=== PATIENT | female | born 1960 | race Caucasian/White ===

== ENCOUNTER 2016-08-11 01:25 | Emergency (ER) | payer BC, SELFPAY ==
[2016-08-11] MEDS ORDERED: Albuterol Sulfate 2.5 mg/0.5 ml Neb ONE ×3 (01:36→02:05)
[2016-08-11] MEDS ORDERED: Sodium Chloride 0.9% 1,000 ML ONE (01:36)
[2016-08-11] MEDS ORDERED: Ipratropium Bromide 2.5 ml Neb ONE (01:36)
[2016-08-11] MEDS ORDERED: methylPREDNISolone Sod Succ/PF 125 MG/2 ML VIAL ONE (01:37)
[2016-08-11] MEDS ORDERED: Water For Inject, Bacteriostat 30 ML ONE (01:38)
[2016-08-11] MEDS ORDERED: Ondansetron HCl/PF 4 MG/2 ML Vial ONE (01:41)
[2016-08-11 01:53] LABS: #Basophils 0.2 thou/uL (0.0-0.2); #Lymphocytes 3.5 thou/uL (1.20-3.40); #Neutrophils 10.7 thou/uL (1.40-6.50); %Basophils 1.2 % (0.0-1.0); %Eosinophils 5.9 % (0.0-10.0); %Lymphocytes 21.3 % (21.0-51.0); %Monocytes 6.3 % (0.0-10.0); %Neutrophils 65.2 % (42.0-75.0); Hemoglobin 14.7 g/dL (12.0-16.0); Mean Corpuscular HGB CONC 33.3 g/dL (32.0-36.0); Mean Corpuscular Hemoglobin 29.8 pg (27.0-31.0); Mean Corpuscular Volume 89.4 fl (81.0-99.0); Mean Platelet Volume 6.8 fL (7.4-10.4); Platelet Count 530 thou/uL (130-400); RBC Distribution Width 12.6 % (11.5-14.5); Red Blood Cell (RBC) Count 4.94 mill/uL (4.20-5.40); White Blood Cell (WBC) Count 16.4 thou/uL (4.8-10.8)
[2016-08-11] MEDS ORDERED: Albuterol Sulfate 2.5 mg/3 ml Neb ONE (02:02)
[2016-08-11 02:07] LABS: ALT (SGPT) 15 U/L (8-55); AST (SGOT) 14 U/L (5-34); Albumin 4.4 g/dL (3.5-5.0); Alkaline Phosphatase 60 U/L (40-150); Anion Gap 17 mmol/L (10-20); BUN (Urea Nitrogen) 13 mg/dL (9.8-20.1); Bilirubin, Total 0.3 mg/dL (0.2-1.2); CK (CPK) 100 U/L (29-168); Calc. Creatinine Clearance 0 mL/min (70-130); Calcium 9.5 mg/dL (7.8-10.44); Carbon Dioxide 25 mmol/L (22-29); Chloride 98 mmol/L (98-107); Estimated GFR-MDRD 81; Globulin 3.8 g/dL (2.4-3.5); Glucose 126 mg/dL (70-105); Potassium 4.5 mmol/L (3.5-5.1); Protein, Total 8.2 g/dL (6.0-8.3); Sodium 135 mmol/L (136-145)
[2016-08-11 02:09] LABS: CKMB 3.4 ng/mL (0-6.6); Troponin I Less than 0.010 ng/mL (< 0.028)
--- NOTE | 2016-08-11 08:04 | RAD ---
PORTABLE SITTING CHEST 1 VIEW: HISTORY: A 56-year-old female with dyspnea, difficulty breathing, and history of COPD. COMPARISON: 04/03/15. FINDINGS: Monitor leads overlie the chest. Heart size is normal. Stable increased linear and interstitial ma rkings bilaterally. No confluent pneumonia, overt edema, or pleural effusion. IMPRESSION: Mild stable chronic changes. No acute intrathoracic disease. POS: [facility]
== END 2016-08-11 04:08 | disposition short-term general hospital (02) ==
LOC: NAV ERS 01:25
DX: J44.1 Chronic obstructive pulmonary disease with (acute) exacerbation (principal); I10 Essential (primary) hypertension; E78.00 Pure hypercholesterolemia, unspecified; K50.90 Crohn's disease, unspecified, without complications; F41.9 Anxiety disorder, unspecified; F17.210 Nicotine dependence, cigarettes, uncomplicated; Z79.899 Other long term (current) drug therapy
CPT/HCPCS: 71010; 80053; 82550; 82553; 83880; 84484; 85025; 87040; 93005; 94640; 94644; 94660; 94760; 96361; 96374; 96375; J2405; J2930; J7050; J7611; J7644

== ENCOUNTER 2018-05-02 17:37 | Emergency (ER) | payer BC ==
[2018-05-02] MEDS ORDERED: Oxymetazoline HCl 0.05% ( 15 ML ) ONE (18:00)
== END 2018-05-02 18:42 | disposition home or self-care (01) ==
LOC: NAV ERS 17:37
DX: R04.0 Epistaxis (principal); K21.9 Gastro-esophageal reflux disease without esophagitis; I10 Essential (primary) hypertension; E78.00 Pure hypercholesterolemia, unspecified; J44.9 Chronic obstructive pulmonary disease, unspecified; F17.210 Nicotine dependence, cigarettes, uncomplicated; Z79.51 Long term (current) use of inhaled steroids
CPT/HCPCS: 99283

== ENCOUNTER 2024-04-02 10:57 | Emergency (ER) | payer BC ==
[2024-04-02] MEDS ORDERED: Acetaminophen 325 MG TAB ONE (11:26)
[2024-04-02] MEDS ORDERED: Ipratropium/Albuterol 3 ML NEB ONE (11:26)
== END 2024-04-02 12:25 | disposition home or self-care (01) ==
LOC: NAV ERS 10:57
DX: J10.1 Influenza due to other identified influenza virus with other respiratory manifestations (principal); J44.9 Chronic obstructive pulmonary disease, unspecified; I10 Essential (primary) hypertension; Z87.891 Personal history of nicotine dependence; Z79.51 Long term (current) use of inhaled steroids; Z79.899 Other long term (current) drug therapy
CPT/HCPCS: 71046; 87428; 94640; J7620